=== PATIENT | female | born 1960 | race Caucasian/White ===

== ENCOUNTER → 2017-09-22 | Outpatient (CLI) | payer SELFPAY ==
[~2017-09-22] MED LIST: ADVAIR DISKUS 21 DSK IH; HCTZ 25MG25 MG PO; OMEGA 31000 MG PO; PROVENTIL0.09 MG/A1 IH; RHINOCORT AQUA8.6 GM NS; SINGULAIR10 MG PO; ZYRTEC10 MG PO; estroven
== END ==
LOC: COL.RAD 13:17
DX: K57.30 Diverticulosis of large intestine without perforation or abscess without bleeding (principal); K57.32 Diverticulitis of large intestine without perforation or abscess without bleeding; M41.86 Other forms of scoliosis, lumbar region; M48.061 Spinal stenosis, lumbar region without neurogenic claudication; M51.27 Other intervertebral disc displacement, lumbosacral region; K44.9 Diaphragmatic hernia without obstruction or gangrene; Z90.710 Acquired absence of both cervix and uterus; D72.829 Elevated white blood cell count, unspecified
CPT/HCPCS: Q9967

== ENCOUNTER → 2018-08-17 | Outpatient (CLI) | payer SELFPAY | LOC: MC.RAD 08:20 | DX: Z12.31 Encounter for screening mammogram for malignant neoplasm of breast (principal) ==

== ENCOUNTER → 2018-09-07 | Outpatient (CLI) | payer SELFPAY | LOC: SUN.DIA 08-19 16:48 | DX: E11.9 Type 2 diabetes mellitus without complications (principal); E78.5 Hyperlipidemia, unspecified; I10 Essential (primary) hypertension | CPT/HCPCS: G0108 ==

== ENCOUNTER → 2018-10-12 | Outpatient (CLI) | payer SELFPAY | LOC: SUN.DIA 09:25 | DX: E11.9 Type 2 diabetes mellitus without complications (principal); E78.5 Hyperlipidemia, unspecified; I10 Essential (primary) hypertension | CPT/HCPCS: G0108 ==

== ENCOUNTER → 2018-10-13 | Outpatient (CLI) | payer SELFPAY | LOC: COL.RAD 11:08 | DX: E04.1 Nontoxic single thyroid nodule (principal) ==

== ENCOUNTER → 2018-11-30 | Outpatient (CLI) | payer SELFPAY | LOC: SUN.DIA 09:39 | DX: E11.9 Type 2 diabetes mellitus without complications (principal); E78.5 Hyperlipidemia, unspecified; I10 Essential (primary) hypertension | CPT/HCPCS: G0108 ==